=== PATIENT | female | born 1995 | race Caucasian/White ===

== ENCOUNTER 2017-07-15 19:22 | Emergency (ER) | payer OTHER ==
[~2017-07-15] VITALS: Ht 170.2 cm; Wt 81.6 kg
[2017-07-15 19:32] VITALS: BP 143/72
--- NOTE | 2017-07-15 19:55 | NUR ---
pt taken to er bed 1
--- NOTE | 2017-07-15 20:10 | NUR ---
22/F PRESENTS TO ER C/O CHEST PAIN X2 WEEKS. NO PMH. NO ALLERGIES. PT STATES NO PRECIPITATING EVENT TO CHEST PAIN, PT "THOUGHT IT WAS HEART BURN AND WOULD GO AWAY IN 2 OR 3 DAYS". PT DENIES SOB, N/V/D, FEVER. PT RATES PAIN AT 7/10 AND WORSE WHEN LAYING DOWN, NON RADIATING STERNAL PAIN, SHARP CONTINUOUS PAIN. COMFORT NEEDS MET, ER MD NOTIFIED OF PT STATUS.
--- NOTE | 2017-07-15 20:21 | NUR ---
DR CROOKS EVALUATING PT AT BEDSIDE.
[2017-07-15] MEDS ORDERED: KETOROLAC 30 MG/ML VIAL IM ONE (20:25)
[2017-07-15 21:23] LABS: BARBITURATE, URINE NEG. ng/ml (NEG <=200); BENZODIAZEPINE, URINE NEG. ng/mL (NEG <=200); CANNABINOID, URINE NEG. ng/mL (NEG <=50); COCAINE, URINE NEG. ng/mL (NEG <=300); OPIATE, URINE NEG. ng/mL (NEG <=2000); PHENCYCLIDINE SCREEN,URINE NEG. ng/mL (NEG <=25)
[2017-07-15 21:50] VITALS: BP 104/80
--- NOTE | 2017-07-15 21:50 | NUR ---
Patient discharged with v/s stable. Written and verbal after care instructions given and explained. Patient alert, oriented and verbalized understanding of instructions. Ambulatory with steady gait. All questions addressed prior to discharge. ID band removed. Patient advised to follow up with PMD. Rx of Naprosyn 500mg given. Patient educated on indication of medication including possible reaction and side effects. Opportunity to ask questions provided and answered.
== END 2017-07-15 21:50 | disposition home or self-care (01) ==
LOC: MED 19:22
DX: R07.89 Other chest pain (principal)
CPT/HCPCS: 71010; 80305; 81002; 81025; 93005; 96372; 99285; J1885; Q0092